=== PATIENT | male | born 1960 | race Hispanic/Latino ===

== ENCOUNTER 2018-06-20 22:06 | Emergency (ER) | payer OTHER ==
[2018-06-20 22:32] VITALS: BP 129/86; PULSE 98; RESP 20; TEMP 98.2; O2SAT 100
[2018-06-20] MEDS ORDERED: Lidocaine Hydrochloride 5 ML INJ ONE (22:56)
[2018-06-20] MEDS ORDERED: Amoxicillin-Clav 875-125 mg Tab PO STA (23:21)
[2018-06-20] MEDS ORDERED: Amoxicillin-Clav 875-125 mg Tab PO ONE (23:28)
--- NOTE | 2018-06-20 23:42 | C.PDOC ---
History Of Present Illness patient presents with c/o laceration to his left hand s/p getting bitten by his adopted dog. he states he has had the dog for about a month after rescuing from a senior care. he was told she had some possession aggression. tonight he was attempting to take a piece of bark from her and she bit him. he states she is up to date with vaccinations. Time Seen by Provider: 06/20/18 22:41 Chief Complaint (Nursing): Abnormal Skin Integrity History Per: Patient History/Exam Limitations: no limitations Onset/Duration Of Symptoms: Persistent Current Symptoms Are (Timing): Still Present Location Of Injury: Left: Hand, Posterior: Hand Quality Of Symptoms: Painful - Animal Bite Description Of The Attack: Other (trying to take prized possession) Past Medical History Vital Signs: Last Vital Signs Temp 98.2 F 06/20/18 22:28 Pulse 98 H 06/20/18 22:28 Resp 20 06/20/18 22:28 BP 129/86 06/20/18 22:28 Pulse Ox 100 06/20/18 22:28 - Medical History PMH: HTN Family History: States: No Known Family Hx - Social History Hx Alcohol Use: Yes Hx Substance Use: No Review Of Systems Constitutional: Negative for: Fever, Chills Musculoskeletal: Positive for: Hand Pain Skin: Positive for: Other (laceration) Neurological: Negative for: Weakness, Numbness Physical Exam - Physical Exam Appears: Well, Non-toxic Skin: Normal Color Head: Atraumatic, Normacephalic Extremity: Normal ROM, No Pedal Edema, No Deformity Extremity: Bilateral: Normal Color And Temperature, Normal ROM Pulses: Left Radial: Normal, Right Radial: Normal Neurological/Psych: Oriented x3, Normal Speech, Normal Cognition ED Course And Treatment O2 Sat by Pulse Oximetry: 100 Procedure: Wound Repair - Time Out Time Out: Side verified, Patient ID confirmed - Procedure Procedure: Wound Repair: suture of laceration - Consent Obtained Consent obtained: Verbal - Performed by Performed by: Mid-level Provider - Indications Indication(s):: Laceration, Bite - Location Location:: Left, Dorsal, Hand Dimensions Length cm: 4 Depth:: Subcutaneous fascia - Anesthetic Technique Anesthetic Technique: Local Local/Regional Anesthetic:: Lidocaine 1% - Debris Debris:: None - Irrigated Irrigated with ml of normal saline: 100 - Complexity Complexity:: Simple (one layer) - Wound repair method Sutures:: # (4), Size (4.0), Type (nylon), Technique (interuppted) - Muscle repiar layer closed with Muscle repair layer closed with:: Tetanus up to date - Patient tolerated procedure Patient Tolerated Procedure:: Well (wound loosely approximated) Medical Decision Making Medical Decision Making: patient refused hand xray. his wound was cleansed and explored for FB. loose approximation of skin with with interrupted sutures, wound still oozing. Disposition Counseled Patient/Family Regarding: Diagnosis, Need For Followup - Disposition Disposition: HOME/ ROUTINE Disposition Time: 23:54 Condition: STABLE Additional Instructions: Return to the ER in 8-10 days for suture removal. return to the ER sooner if symptoms worsen. Prescriptions: Amoxicillin/Clavulanate [Augmentin 875 MG-125 MG] 1 tab PO BID 5 Days tab Instructions: Laceration Repair With Stitches (DC), Animal Bite (ED) Forms: [facility] ([place]), General Discharge Instructions - Clinical Impression Clinical Impression: Dog bite of hand without complication, Laceration of hand
== END 2018-06-21 00:04 | disposition home or self-care (01) ==
LOC: C.ER 22:06
DX: S61.412A Laceration without foreign body of left hand, initial encounter (principal); W54.0XXA Bitten by dog, initial encounter